=== PATIENT | female | born 1985 | race Caucasian/White ===

== ENCOUNTER 2016-10-06 15:29 | Emergency (ER) | payer OTHER ==
[~2016-10-06] VITALS: Ht 160 cm; Wt 77.3 kg
[2016-10-06] MEDS ORDERED: IBUPROFEN 800 MG TABLET PO ONE (17:00)
[2016-10-06] MEDS ORDERED: PROPARACAINE HCL 0.5% 15 ML OPHTHALMIC SOLUTION OD ONE (17:00)
[2016-10-06 17:10] VITALS: BP 121/86
== END 2016-10-06 17:33 | disposition home or self-care (01) ==
LOC: EMS 15:35
DX: H57.8 Other specified disorders of eye and adnexa (principal)
CPT/HCPCS: 99283

== ENCOUNTER 2017-10-28 06:57 | Emergency (ER) | payer OTHER ==
[~2017-10-28] VITALS: Ht 160 cm; Wt 95.5 kg
[2017-10-28 08:46] VITALS: BP 111/73
== END 2017-10-28 08:52 | disposition home or self-care (01) ==
LOC: EMS 06:57
DX: S56.912A Strain of unspecified muscles, fascia and tendons at forearm level, left arm, initial encounter (principal); S53.402A Unspecified sprain of left elbow, initial encounter; X50.9XXA Other and unspecified overexertion or strenuous movements or postures, initial encounter; Y93.89 Activity, other specified; Y92.89 Other specified places as the place of occurrence of the external cause; Y99.0 Civilian activity done for income or pay
CPT/HCPCS: 99284